=== PATIENT | male | born 1960 | race Caucasian/White ===

== ENCOUNTER 2022-05-11 08:43 | Outpatient (CLI) | payer OTHER, SELFPAY ==
[2022-05-11 18:55] LABS: Alanine Aminotransferase 28 U/L (6-50); Albumin Level 4.3 g/dL (3.5-5.1); Alkaline Phosphatase 74 U/L (38-126); Anion Gap 6 mmol/L (8-16); Aspartate Amino Transferase 32 U/L (17-59); Bilirubin,Total 1.2 mg/dL (0.2-1.3); Blood Urea Nitrogen 17 mg/dL (9-20); Calcium 8.8 mg/dL (8.4-10.2); Carbon Dioxide 28 mmol/L (22-30); Chloride 106 mmol/L (98-107); Cholesterol 172 mg/dL (0-200); Estimated Glomerular Filt Rate > 60; Glucose 93 mg/dL (65-110); HDL Direct 48 mg/dL; Potassium 4.4 mmol/L (3.4-5.0); Sodium 140 mmol/L (137-145); Triglycerides 78 mg/dL (<150)
[2022-05-11 19:06] LABS: LDL Cholesterol Direct 96 mg/dL
[2022-05-11 19:27] LABS: Prostate Specific Antigen 3.1 ng/mL (< OR = 4.0)
== END 2022-05-11 08:44 | disposition home or self-care (01) ==
LOC: ANHGOSHLAB 08:44
PROVIDERS: PCP Family Medicine; Visit Provider Family Medicine
DX: Z13.228 Encounter for screening for other metabolic disorders (principal); Z13.220 Encounter for screening for lipoid disorders; Z12.5 Encounter for screening for malignant neoplasm of prostate
CPT/HCPCS: 36415; 80053; 80061; 84153; G0103

== ENCOUNTER → 2022-05-11 09:14 | Outpatient (CLI) | payer OTHER, SELFPAY ==
--- NOTE | ~2022-05-11 | XR_ITS ---
Right Shoulder Technique: AP internal rotation, external rotation, and Grashey views and axillary views were obtaine d. Clinical History: Pain COMPARISON: 10/07/2017 Findings: No fracture or dislocation is seen. Suture anchor noted at the right humeral head. Osseous alignment is anatomic. The glenohumeral and acromioclavicular joint spaces are preserved. Soft tissue s are unremarkable. Impression: No change from prior exam. No fracture or dislocation. Suture anchor at the right humeral head present. Reviewed, dictated and finalized at location [facility] Impression: No change from prior exam. No fracture or dislocation. Suture anchor at the right humeral head present.
== END ==
PROVIDERS: PCP Family Medicine; Visit Provider Family Medicine
DX: M25.511 Pain in right shoulder (principal)
CPT/HCPCS: 73030

== ENCOUNTER → 2022-07-24 14:36 | Outpatient (CLI) | payer OTHER, SELFPAY ==
--- NOTE | ~2022-07-24 | MR_ITS ---
EXAMINATION: MR shoulder RT wo con DATE: 07/24/2022 15:14 INDICATION: Rotator cuff tear presenting with right shoulder pain, weakness and decreased range of mo tion. TECHNIQUE: Magnetic resonance imaging (MRI) of the right shoulder was performed without intravenous c ontrast. Sequences included axial PD-weighted FS FSE, coronal oblique PD-weighted FS FSE, coronal obl ique T2-weighted FS FSE, sagittal PD-weighted FS FSE, and sagittal T1-weighted SE. COMPARISON: Right shoulder radiographs dated 05/11/2022 FINDINGS: Coracoacromial arch: The acromion undersurface is curved in morphology (type II) with mild lateral downsloping. The coraco acromial ligament is normal. Moderate acromioclavicular osteoarthritis. Rotator cuff: Suture anchor along the lateral margin of the superior facet of the greater tuberosity consistent wit h prior rotator cuff repair. Partial-thickness articular sided tear of the supraspinatus tendon with medially retracted articular sided tear margin located along the superior margin of the glenoid. The more lateral supraspinatus tendon is significantly attenuated and frayed. There is a full-thickness t ear measuring approximately 8 mm AP at the level of the apex of the humeral head which extends latera lly towards the superior facet footplate where there is a minimal amount of residual frayed tendon ma terial. 1 there is moderate anterior predominant infraspinatus tendinopathy. Small amount of fluid an d sepsis ganglion cyst extends 1 cm medial to the level of the glenoid along an intrasubstance split tear within the deep portion of the infraspinatus tendon. No evident bursal or articular sided tear d efect or discrete retracted tear margin. The teres minor tendon is normal. Mild subscapularis tendino vito with complete tear and up to 4 cm medial retraction of the cephalad two thirds of the lesser tu berosity insertion of the subscapularis tendon. The bursal side of the tendon remains tethered latera lly by the residual intact transverse humeral ligament. There is mild fatty atrophy of the subscapula ris muscle belly. Biceps tendon, glenoid labrum and glenohumeral cartilage: Long head biceps tendon is subluxed across the torn subscapularis footplate of the lesser tuberosity. Tendinopathy of the long head of the biceps tendon, mild at the extra articular portion moderate sev erity at the intra-articular portion without discrete tear. There is irregular degenerative tearing a t the posterior superior glenoid labrum. Small shallow tear at the inferior chondral labral junction. Mild partial-thickness cartilage loss with smooth chondral surface at the cephalad third of the mariann oid and along the inferomedial humeral head. Additional partial thickness cartilage loss slightly pos terior to the apex of the humeral head. Fluid: Small glenohumeral joint effusion which extends to the full-thickness rotator cuff tear to communicat e with a small amount of fluid in the subacromial/subdeltoid bursa. There is proportional extension o f a small amount of fluid within the long head biceps tendon sheath. No loose osteochondral bodies. Bones: Bone alignment is normal. No fracture or suspected avascular necrosis. Mild cystic change at the grea ter tuberosity. IMPRESSION: 1. Changes of prior supraspinatus tendon repair with likely recurrent retracted partial thickness art icular sided tear with more focal small full-thickness tear overlying the apex of the humeral head. 2. Mild subscapularis tendinopathy with complete tear and medial retraction of the cephalad two third s of the lesser tuberosity insertion of the tendon. 3. Moderate infraspinatus tendinopathy with ganglion cyst in the deep tendon extending along the intr asubstance split tear. 4. Mild right glenohumeral osteoarthritis with degenerative tearing of the posterosuperior glenoid la trevor. 5. Moderate tendinopathy of the intra-articula
== END ==
PROVIDERS: PCP Orthopaedic Surgery; Visit Provider Orthopaedic Surgery
DX: M75.101 Unspecified rotator cuff tear or rupture of right shoulder, not specified as traumatic (principal); M19.011 Primary osteoarthritis, right shoulder
CPT/HCPCS: 73221

== ENCOUNTER 2022-11-09 09:12 | Outpatient (CLI) | payer OTHER, SELFPAY ==
[2022-11-14 13:38] LABS: Testosterone Free 68.5 pg/mL (35.0-155.0); Testosterone Total 706 ng/dL (250-1100)
== END 2022-11-09 09:13 | disposition home or self-care (01) ==
LOC: ANHGOSHLAB 09:13
PROVIDERS: PCP Orthopaedic Surgery; Visit Provider Family Medicine
DX: R53.83 Other fatigue (principal)
CPT/HCPCS: 36415; 84402; 84403